=== PATIENT | female | born 1995 ===

== ENCOUNTER 2019-03-03 08:25 | Emergency (ER) | payer OTHER ==
[2019-03-03 08:41] VITALS: BP 104/72
--- NOTE | 2019-03-03 09:55 | UC ---
Abdominal Pain Female HPI - HPI Summary HPI Summary: 23-year-old female presents with 3 day history of sharp, constant epigastric pain. Associated with some mild nausea. No improvement or worsening with eating. States pain worsens when she pushes over the area. Has taken Tums and Pepcid once with no improvement Has history of ulcers in the past. Denies fever , chills, chest pain, shortness of breath, vomiting, or diarrhea. - History of Current Complaint Chief Complaint: UCAbdominalPain Stated Complaint: UPPER ABD PAIN Time Seen by Provider: 03/03/19 09:54 Hx Obtained From: Patient Hx Last Menstrual Period: 02/22/19 Pain Intensity: 5 Allergies/Adverse Reactions: Allergies Allergy/AdvReac Type Severity Reaction Status Date / Time No Known Allergies Allergy Verified 03/03/19 08:41 PMH/Surg Hx/FS Hx/Imm Hx Previously Healthy: Yes - Denies significant PMH - Surgical History Surgical History: None - Family History Known Family History: Positive: Non-Contributory - Social History Occupation: Student Lives: Dormitory/Roommates Alcohol Use: Occasionally Substance Use Type: None Smoking Status (MU): Never Smoked Tobacco When Did the Patient Quit Smoking/Using Tobacco: Patient reports trying a cigarrette one time, over thirty days ago. - Immunization History Most Recent Influenza Vaccination: Patient believes she received in 2015. Most Recent Tetanus Shot: UTD Most Recent Pneumonia Vaccination: N/A Review of Systems All Other Systems Reviewed And Are Negative: Yes Constitutional: Negative: Fever, Chills ENT: Negative: Sore Throat Respiratory: Negative: Shortness Of Breath, Cough Cardiovascular: Negative: Palpitations, Chest Pain Gastrointestinal: Positive: Abdominal Pain, Nausea. Negative: Vomiting, Diarrhea Genitourinary: Negative: Dysuria, Hematuria, Frequency, Urgency Neurological: Positive: Negative Is Patient Immunocompromised?: No Physical Exam - Summary Physical Exam Summary: GENERAL APPEARANCE: Well developed, well nourished, alert and cooperative, and appears to be in no acute distress. CARDIAC: Normal S1 and S2. No S3, S4 or murmurs. Rhythm is regular. There is no peripheral edema, cyanosis or pallor. Extremities are warm and well perfused. Capillary refill is less than 2 seconds. Peripheral pulses intact. LUNGS: Clear to auscultation without rales, rhonchi, wheezing or diminished breath sounds. ABDOMEN: Positive bowel sounds. Soft, nondistended. Mild epigastric tenderness without guarding or rebound. No masses or hepatosplenomegally. MUSKULOSKELETAL: ROM intact to all extremities. No joint erythema or tenderness. Normal muscular development. Normal gait. SKIN: Skin normal color, texture and turgor with no lesions or eruptions. Triage Information Reviewed: Yes Vital Signs: Initial Vital Signs Temp 98.4 F 03/03/19 08:38 Pulse 77 03/03/19 08:38 Resp 20 03/03/19 08:38 BP 104/72 03/03/19 08:38 Pulse Ox 100 03/03/19 08:38 Vital Signs Reviewed: Yes Abd Pain Female Course/Dx - Course Course Of Treatment: 23-year-old female presents with 3 day history of sharp, constant epigastric pain. Associated with some mild nausea. No improvement or worsening with eating. States pain worsens when she pushes over the area. Has taken Tums and Pepcid once with no improvement Has history of ulcers in the past. Denies fever , chills, chest pain, shortness of breath, vomiting, or diarrhea. Afebrile. Vital signs stable. Exam was unremarkable except for some mild epigastric tenderness without rebound or guarding. With her history of ulcers in the past and suspect that this may be peptic ulcer disease although I discussed with the patient cannot rule out the possibility of gallbladder or pancreatic disease. Will start her on 40 mg daily and have her follow-up with gastroenterology within a week. Discomfort and some warning symptoms were reviewed with the patient. Verbalizes understanding and agrees with plan of care. - Differential Dx/Diagnosis Differential Diagnosis: Gall Bladder Disease, Pancreatitis, Peptic Ulcer Disease , Other - GERD Provider Diagnosis: Epigastric abdominal pain Discharge - Sign-Out/Discharge Documenting (check all that apply): Patient Departure All imaging exams completed and their final reports reviewed: No Studies - Discharge Plan Condition: Stable Disposition: HOME Prescriptions: Omeprazole 40 mg PO DAILY #14 cap Patient Education Materials: Epigastric Pain (ED) Referrals: No Primary Care Phys,NOPCP [Primary Care Provider] - Dao Styles DO [Doctor of Osteopathy] - 7 Days (Call for an appointment.) Additional Instructions: Your history and exam are consistent with peptic ulcer disease although I cannot fully rule out another cause such as gall bladder disease or pancreatitis. Start omeprazole 40 mg daily. Try to avoid using non-steroidal anti-inflammatory pain medications such as ibuprofen (Advil, Motrin) or naproxen (Aleve) as these can worsen your symptoms. Follow up with gastroenterology within 7 days for further evaluation and treatment. Seek immediate medical attention in the emergency room if you develop fever greater than 100.5 F, have worsening abdominal pain, persistent vomiting, blood in your vomit, or any worsening of symptoms. - Billing Disposition and Condition Condition: STABLE Disposition: Home
== END 2019-03-03 10:24 | disposition home or self-care (01) ==
LOC: UCEAST 08:25
DX: R10.13 Epigastric pain (principal); R11.0 Nausea
CPT/HCPCS: 99212; G0463